=== PATIENT | female | born 2000 | race Hispanic/Latino ===

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

== ENCOUNTER 2021-06-15 16:47 | Emergency (ER) | payer MEDICAID ==
[~2021-06-15] VITALS: Ht 147.3 cm; Wt 70.8 kg
[~2021-06-15 16:47] MED LIST: ESCI10TA PO; TRAZ-185 PO
[2021-06-15 16:50] VITALS: BP 114/76
[2021-06-15] MEDS ORDERED: SOLU-MEDROL 125MG VIAL IM ONE (17:30)
[2021-06-15] MEDS ORDERED: PRED20TA3 PO (17:57)
== END 2021-06-15 18:35 | disposition home or self-care (01) ==
LOC: EDH 16:47
DX: L50.9 Urticaria, unspecified (principal); Z79.899 Other long term (current) drug therapy; Z98.890 Other specified postprocedural states
CPT/HCPCS: 81025; 96372; 99283; J2930